=== PATIENT | female | born 1975 | race Caucasian/White ===

== ENCOUNTER → 2017-02-12 | Outpatient (CLI) | payer BC ==
[~2017-02-12] MED LIST: ALBUAER2 INH; FLUO20CA35 PO; FLUT1INH INH; IBUP-103 PO; IRON1CAP2 PO; METH1TAB66 PO; MULT-513 PO; SITA50TA5 PO
--- NOTE | 2017-02-12 14:36 | DIAGNOSTIC IMAGING REPORT ---
C-SPINE ROUTINE 4 OR 5 VIEWS HISTORY: Pain. Neuropathy. M25.512,R20.2 COMPARISON: None. FINDINGS: The cervical spine is visualized from C1 through the superior endplate of T1. There is no fracture. No subluxation. Disc spaces are preserved. Prevertebral soft tissues and the atlantodens interval are intact. IMPRESSION: No fracture or subluxation within the cervical spine. Straightening of the cervical curvature consistent with muscular spasm The above report was generated using voice recognition software. It may contain grammatical, syntax or spelling errors. Electronically signed by: Jose Taylor M.D. 02/12/2017 2:35 PM Dictated Date/Time: 02/12/2017 2:35 PM
--- NOTE | 2017-02-12 14:37 | DIAGNOSTIC IMAGING REPORT ---
CHEST 2 VIEWS ROUTINE CLINICAL HISTORY: M25.512.R20.2 pain. Neuropathy. COMPARISON STUDY: No previous studies for comparison. FINDINGS: The bones soft tissues and hemidiaphragms are normal. The cardiomediastinal silhouette is normal. The lungs are clear. The pulmonary vasculature is normal. IMPRESSION: Negative chest. The above report was generated using voice recognition software. It may contain grammatical, syntax or spelling errors. Electronically signed by: Jose Taylor M.D. 02/12/2017 2:36 PM Dictated Date/Time: 02/12/2017 2:35 PM
--- NOTE | 2017-02-12 14:38 | DIAGNOSTIC IMAGING REPORT ---
LEFT CLAVICLE CLINICAL HISTORY: M25.512 pain COMPARISON: None. DISCUSSION: The bones and joint spaces appear intact. There is no evidence of fracture, dislocation or bony disease. There is no evidence for soft tissue swelling. IMPRESSION: Negative study. The above report was generated using voice recognition software. It may contain grammatical, syntax or spelling errors. Electronically signed by: Jose Taylor M.D. 02/12/2017 2:36 PM Dictated Date/Time: 02/12/2017 2:36 PM
== END | disposition home or self-care (01) ==
LOC: C.RAD 13:45
PROVIDERS: ATTEND Family Medicine
DX: M25.512 Pain in left shoulder (principal)